=== PATIENT | male | born 2000 | race Caucasian/White ===

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

== ENCOUNTER 2018-03-01 02:19 | Emergency (ER) | payer OTHER ==
--- NOTE | 2018-03-01 02:23 | EDPHY ---
H & P Time Seen by Provider: 03/01/18 02:23 HPI/ROS: Chief Complaint: Alcohol intoxication, medical clearance HPI: 17-year-old male being brought in by EMS in the police for medical clearance for long term. Patient admits to drinking alcohol tonight. He was ambulating unassisted however he did vomit once so was brought here for medical clearance. He has been awake alert and conversant. He is currently without complaint. He has been combative and required restraints. He is currently under arrest. He denies past medical history. He is unwilling to answer any other questions for Re. Denies trauma or hitting his head. No evidence of trauma per EMS. ROS: 10 systems were reviewed and were negative except those elements noted in the HPI. PMH: Denies Social History: Denies smoking, denies alcohol Family History: non-contributory Physical Exam: Gen: Awake, Alert, slurred speech, smells of alcohol HEENT: Nose: no rhinorrhea Eyes: PERRLA, EOMI Mouth: Moist mucosa Neck: Supple, no JVD Chest: nontender, lungs clear to auscultation Heart: S1, S2 normal, no murmur Abd: Soft, non-tender, no guarding Back: no CVA tenderness, no midline tenderness Ext: no edema, non-tender Skin: no rash Neuro: CN II-XII intact, Sensation grossly intact, Strength 5/5 in bilateral upper and lower extremities - Medical/Surgical History Hx Asthma: No Hx Chronic Respiratory Disease: No Hx Diabetes: No Hx Cardiac Disease: No Hx Renal Disease: No Hx Cirrhosis: No Hx Alcoholism: No Hx HIV/AIDS: No Hx Splenectomy or Spleen Trauma: No Other PMH: Denies - Social History Smoking Status: Never smoked Allergies/Adverse Reactions: No Known Allergies Allergy (Unverified 07/21/16 00:17) Home Medications: Medication Instructions Recorded NK [No Known Home Meds] 07/21/16 Medical Decision Making ED Course/Re-evaluation: 17-year-old intoxicated male brought in for medical clearance. He has been ambulating unassisted. No further vomiting. He is awake alert and answering questions appropriately. He is medically cleared for long term. Departure - Departure Disposition: Home, Routine, Self-Care Clinical Impression: Alcoholic intoxication Condition: Good Instructions: Alcohol Intoxication (ED) Additional Instructions: MEDICALLY CLEAR FOR PRISON Referrals: NONE *PRIMARY CARE P,. [Primary Care Provider] - As per Instructions
[2018-03-01 02:25] VITALS: BP 143/90
== END 2018-03-01 02:37 | disposition home or self-care (01) ==
LOC: EDUNIT#
DX: F10.920 Alcohol use, unspecified with intoxication, uncomplicated (principal)